=== PATIENT | female | born 1975 | race Caucasian/White ===

== ENCOUNTER 2017-03-05 14:20 | Emergency (ER) | payer SELFPAY ==
--- NOTE | 2017-03-05 15:03 | ER Document Report ---
ED Seizure - General Chief Complaint: Probable Seizure Stated Complaint: POSSIBLE SEIZURE Time Seen by Provider: 03/05/17 15:02 Mode of Arrival: Medic Information source: Patient, Friend, Emergency Med Personnel TRAVEL OUTSIDE OF THE [place] IN LAST 30 DAYS: No - HPI Patient complains to provider of: First seizure Quality of pain: No pain Severity: None Continued on arrival to ED: No Can details of seizure be obtained/verified: Yes Episode witnessed (by whom): Yes - SIGNIFICANT OTHER Preceding symptoms/context: Recent alcohol intake. denies: Recent illness/fever , Recent drug use, Sleep deprivation, Missed dose of meds, Changed meds or dosage, Somnolence History of: denies: Brain tumor or mets, CVA, Hydrocephalus, Migraines, TBI, V/ P shunt Character of seizure: Complete loss/conscious, Generalized shaking, Staring Post-ictal symptoms: Confusion. No: Headache Injuries: None Treatment COMPENSATION AND BENEFITS MANAGER: No: Advanced airway, Ativan, Valium Associated Symptoms: Confusion, Loss consciousness - Related Data Allergies/Adverse Reactions: No Known Allergies Allergy (Verified 03/05/17 14:57) Past Medical History - General Information source: Patient - Social History Smoking Status: Unknown if Ever Smoked Frequency of alcohol use: Occasional Drug Abuse: None Lives with: Spouse/Significant other Family History: None Patient has suicidal ideation: No Patient has homicidal ideation: No - Past Medical History Cardiac Medical History: Reports: None Pulmonary Medical History: Reports: None EENT Medical History: Reports: None Neurological Medical History: Reports: None Endocrine Medical History: Reports: None Renal/ Medical History: Reports: None Malignancy Medical History: Reports: None GI Medical History: Reports: None Musculoskeltal Medical History: Reports None Psychiatric Medical History: Reports: None Surgical Hx: Negative Review of Systems - Review of Systems Constitutional: Weakness EENT: No symptoms reported Cardiovascular: No symptoms reported Respiratory: No symptoms reported Gastrointestinal: No symptoms reported Genitourinary: No symptoms reported Female Genitourinary: denies: Musculoskeletal: No symptoms reported Neurological/Psychological: See HPI Physical Exam - Vital signs Vitals: Temp Pulse Resp BP Pulse Ox 98.9 F 81 16 135/79 H 99 03/05/17 14:31 03/05/17 14:31 03/05/17 14:31 03/05/17 14:31 03/05/17 14:31 Interpretation: Normal - General General appearance: Appears well, Alert In distress: None - HEENT Head: Normocephalic Eyes: Normal Conjunctiva: Normal Pupils: PERRL Ears: Normal Nasal: Normal Mouth/Lips: Normal Mucous membranes: Normal Neck: Normal, Supple - Respiratory Respiratory status: No respiratory distress Breath sounds: Normal - Cardiovascular Rhythm: Regular Heart sounds: Normal auscultation Murmur: No - Abdominal Inspection: Normal Distension: No distension Bowel sounds: Normal - Back Back: Normal - Extremities General upper extremity: Normal inspection General lower extremity: Normal inspection. No: Edema - Neurological Neuro grossly intact: Yes Cognition: Normal Orientation: AAOx4 - Psychological Associated symptoms: Normal affect, Normal mood - Skin Skin Temperature: Warm Skin Moisture: Dry Skin Color: Normal Skin Turgor: Elastic Course - Re-evaluation Re-evalutation: 03/05/17 18:24 PATIENT DENIES COMPLAINTS. RESULTS OF WORK-UP DISCUSSED. - Vital Signs Vital signs: Temp Pulse Resp BP Pulse Ox 98.9 F 81 16 135/79 H 99 03/05/17 14:31 03/05/17 14:31 03/05/17 14:31 03/05/17 14:31 03/05/17 14:31 - Laboratory Result Diagrams: 03/05/17 15:40 03/05/17 15:40 Laboratory results interpreted by me: 03/05/17 03/05/17 03/05/17 15:40 15:40 16:58 WBC 10.7 H RBC 3.66 L Hgb 11.6 L Hct 33.8 L RDW 15.3 H Seg Neuts % (Manual) 92 H Band Neutrophils % 2 L Lymphocytes % (Manual) 6 L Monocytes % (Manual) 0 L Abs Neuts (Manual) 10.1 H Abs Monocytes (Manual) 0.0 L Sodium 134.8 L BUN 6 L Creatine Kinase 168 H Urine Ketones TRACE H Ur Leukocyte Esterase SMALL H - Diagnostic Test Radiology reviewed: Image reviewed, Reports reviewed Discharge - Discharge Clinical Impression: Seizure Condition: Stable Disposition: HOME, SELF-CARE Instructions: New Seizure ([facility]) Additional Instructions: REST, DRINK PLENTY OF FLUIDS. AVOID ALL ALCOHOLIC DRINKS. AVOID ANY MEDICATIONS NOT PRESCRIBED FOR YOU. GET PLENTY OF SLEEP. FOLLOW UP WITH YOUR PRIMARY CARE PROVIDER OR RETURN TO E.R. IF PROBLEMS.
--- NOTE | 2017-03-05 15:39 | RADIOLOGY REPORT (SQ) ---
EXAM DESCRIPTION: CT HEAD WITHOUT COMPLETED DATE/TIME: 03/05/2017 3:32 pm REASON FOR STUDY: SEIZURE, NO PRIOR H/O SAME COMPARISON: None. TECHNIQUE: Axial images acquired through the brain without intravenous contrast. Images reviewed wi th bone, brain and subdural windows. Images stored on PACS. All CT scanners at this facility use dose modulation, iterative reconstruction, and/or weight based d osing when appropriate to reduce radiation dose to as low as reasonably achievable (ALARA). [facility]: Dose Right [facility]: CareDose [facility]: Dose Right [facility]: Teradose 4D [facility]: [employer] RADIATION DOSE: mGy. LIMITATIONS: None. FINDINGS: VENTRICLES: Normal size and contour. CEREBRUM: No masses. No hemorrhage. No midline shift. Normal arce/white matter differentiation. N o evidence for acute infarction. CEREBELLUM: No masses. No hemorrhage. No alteration of density. No evidence for acute infarction. EXTRAAXIAL SPACES: No fluid collections. No masses. ORBITS AND GLOBE: No intra- or extraconal masses. Normal contour of globe without masses. CALVARIUM: No fracture. PARANASAL SINUSES: No fluid or mucosal thickening. SOFT TISSUES: No mass or hematoma. OTHER: No other significant finding. IMPRESSION: NORMAL BRAIN CT WITHOUT CONTRAST. TECHNICAL DOCUMENTATION: JOB ID: [id number] Quality ID # [id number]: Final reports with documentation of one or more dose reduction techniques (e.g., Au tomated exposure control, adjustment of the mA and/or kV according to patient size, use of iterative reconstruction technique) 2010 [employer] All Rights Reserved
[2017-03-05 16:08] LABS: HEMATOCRIT 33.8 % (36.0-47.0); HEMOGLOBIN 11.6 g/dL (12.0-15.5); MEAN CORPUSCULAR HEMOGLOBIN 31.6 pg (27.0-33.4); MEAN CORPUSCULAR HGB CONC 34.2 g/dL (32.0-36.0); MEAN CORPUSCULAR VOLUME 93 fl (80-97); RED BLOOD COUNT 3.66 10^6/uL (3.72-5.28); RED CELL DISTRIBUTION WIDTH 15.3 % (11.5-14.0); WHITE BLOOD COUNT 10.7 10^3/uL (4.0-10.5)
[2017-03-05 16:20] LABS: ALANINE AMINOTRANSFERASE 21 U/L (9-52); ALBUMIN 3.9 g/dL (3.5-5.0); ALKALINE PHOSPHATASE 57 U/L (38-126); ANION GAP 8 (5-19); ASPARTATE AMINO TRANSFERASE 21 U/L (14-36); BILIRUBIN,DIRECT 0.2 mg/dL (0.0-0.4); BILIRUBIN,TOTAL 0.6 mg/dL (0.2-1.3); BLOOD UREA NITROGEN 6 mg/dL (7-20); CALCIUM 8.7 mg/dL (8.4-10.2); CARBON DIOXIDE 22 mmol/L (22-30); CHLORIDE 105 mmol/L (98-107); CREATINE KINASE 168 U/L (30-135); CREATININE RESULT 0.58 mg/dL (0.52-1.25); GLUCOSE 97 mg/dL (75-110); SODIUM 134.8 mmol/L (137-145); TOTAL PROTEIN 6.7 g/dL (6.3-8.2)
[2017-03-05 16:26] LABS: BAND NEUTROPHILS % (MANUAL) 2 % (3-5); BASOPHILS % (MANUAL) 0 % (0-2); EOSINOPHILS % (MANUAL) 0 % (0-6); LYMPHOCYTES % (MANUAL) 6 % (13-45); TOTAL CELLS COUNTED 100
[2017-03-05 16:27] LABS: ANISOCYTOSIS SLIGHT
[2017-03-05 17:23] LABS: APPEARANCE,URINE SLIGHTLY-CLOUDY; BILIRUBIN,URINE NEGATIVE (NEGATIVE); GLUCOSE, URINE NEGATIVE (NEGATIVE); KETONES,URINE TRACE mg/dL (NEGATIVE); LEUKOCYTE ESTERASE,URINE SMALL (NEGATIVE); NITRITE,URINE NEGATIVE (NEGATIVE); PROTEIN,URINE NEGATIVE (NEGATIVE); URINE SPECIFIC GRAVITY 1.016; UROBILINOGEN,URINE NEGATIVE mg/dL (<2.0)
[2017-03-05 17:36] LABS: URINE BARBITURATES SCREEN NEGATIVE; URINE METHADONE SCREEN NEGATIVE; URINE OPIATES LOW NEGATIVE; URINE PHENCYCLIDINE SCREEN NEGATIVE
[2017-03-05 19:28] VITALS: BP 109/59
== END 2017-03-05 19:36 | disposition home or self-care (01) ==
LOC: ER 14:20
DX: R56.9 Unspecified convulsions (principal)
CPT/HCPCS: 36415; 70450; 80053; 80307; 81001; 82550; 84703; 85025; 99285

== ENCOUNTER 2017-03-14 22:31 | Inpatient (IN) | payer BC ==
[2017-03-14] MEDS ORDERED: LORAZEPAM INJ 2 MG/1 ML VIAL ONE (23:25)
--- NOTE | 2017-03-14 23:27 | ER Document Report ---
ED General - General Stated Complaint: POSSIBLE SEIZURE Time Seen by Provider: 03/14/17 22:41 Notes: Please note history is limited as the patient is altered. This is a 42-year-old female with a history of opioid abuse on Suboxone, and history of seizures in the setting of drinking and withdrawal who presents with generalized tonic clonic seizure 2 at home once before EMS and 1 after EMS arrival. She was given Versed and ambulance resulting in termination of the seizures and depressed mental status. Her boyfriend said that she was here for the same recently and has been drinking up until 2 days ago. TRAVEL OUTSIDE OF THE [place] IN LAST 30 DAYS: No - Related Data Allergies/Adverse Reactions: No Known Allergies Allergy (Verified 03/05/17 14:57) Past Medical History - General Information source: Patient - Social History Smoking Status: Current Every Day Smoker Family History: None Review of Systems - Review of Systems Notes: REVIEW OF SYSTEMS Secondary to altered mental status PHYSICAL EXAMINATION General: No acute distress, well-nourished Head: Atraumatic, normocephalic ENT: Mouth normal, oropharynx moist, no exudates or tonsillar enlargement sided , contusion and small laceration with controlled bleeding. Eyes: Conjunctiva normal, pupils equal, lids normal Neck: No JVD, supple, no guarding CVS: Normal rate, regular rhythm, no murmurs Resp: No resp distress, equal and normal breath sounds bilaterally GI: Nondistended, soft, no tenderness to palpation, no rebound or guarding Ext: No deformities, no edema, normal range of motion in upper and lower ext Back: No CVA or midline TTP Skin: No rash, warm Lymphatic: No lymphadeopathy noted Neuro: Somnolent and snoring. Opens eyes and localizes pain to sternal rub.. Course - Re-evaluation Re-evalutation: 03/14/17 23:26 Patient presents with seizures generalized tonoclonic 2 in the setting of cessation of alcohol. Per boyfriend she also takes Suboxone and Wellbutrin but he has a low suspicion of overdose intentionally. She did not report any suicidal ideation. This is happened before when she try to stop drinking. She has been to rehab multiple times. There is no trauma and her glucose is normal. Will do a EKG and metabolic workup. She will be observed carefully. Approximately 1 11:20 PM is called to bedside as the patient was having another seizure. She could be having generalized tonic-clonic jerking movements, was unresponsive to verbal stimuli and had a desaturation event to 93. She was given 1 mg Ativan with cessation of the seizure. 03/15/17 00:59 Awake now and alert. She is no nystagmus. She is able to recount the prior day 's events. She states that she did stop alcohol and has been in rehab twice both in [place] and [place]. Spoke with her, her partner, and her father about options of treatment. Given her ability and access to inpatient supervised detox I do not think she merits a Librium taper however she and her partner seem motivated to seek i patient rehab so we will give him referrals and contact him with social work. Patient is clinically sober, her workup has been negative thus far and given her normal mental status and lack of signs of withdrawal (no tongue fasciculations and no tremor) she is stable for discharge home. I have discussed with the patient there likely diagnosis, aftercare plan, follow -up plans and my usual and customary return precautions. They verbalized understanding of this. - Laboratory Result Diagrams: 03/15/17 00:02 03/14/17 22:39 Laboratory results interpreted by me: 03/14/17 03/15/17 22:39 00:02 RDW 15.9 H Seg Neutrophils % 89.1 H Lymphocytes % 7.4 L Carbon Dioxide 13 L Anion Gap 24 H Glucose 141 H Critical Care Note - Critical Care Note Total time excluding time spent on procedures (mins): 32 Comments: The above patient is critically ill. Not including procedures, but including direct re-evaluations, speaking with patient and/or consultants, interpreting results, and documenting, I spent the total amount of minute listed listed above on critical care time Discharge - Discharge Clinical Impression: Alcohol withdrawal seizure Qualifiers: Complication of substance-induced condition: with delirium Qualified Code(s): F10.231 - Alcohol dependence with withdrawal delirium Condition: Good Disposition: HOME, SELF-CARE Instructions: Alcohol Withdrawl ([facility]) Referrals: [facility] [Provider Group] - Follow up in 3-5 days [facility] [Provider Group] - Follow up in 3-5 days
--- NOTE | 2017-03-14 23:30 | RADIOLOGY REPORT (SQ) ---
EXAM DESCRIPTION: CT HEAD WITHOUT COMPLETED DATE/TIME: 03/14/2017 11:10 pm REASON FOR STUDY: sz, r/o bleed COMPARISON: 03/05/2017 TECHNIQUE: Axial images acquired through the brain without intravenous contrast. Images reviewed wi th bone, brain and subdural windows. Images stored on PACS. All CT scanners at this facility use dose modulation, iterative reconstruction, and/or weight based d osing when appropriate to reduce radiation dose to as low as reasonably achievable (ALARA). [facility]: Dose Right [facility]: CareDose [facility]: Dose Right [facility]: Teradose 4D [facility]: [employer] RADIATION DOSE: Up-to-date CT equipment and radiation dose reduction techniques were employed. CTDIv ol: 49.0 mGy. DLP: 979 mGy-cm. mGy. LIMITATIONS: None. FINDINGS: VENTRICLES: Normal size and contour. CEREBRUM: No masses. No hemorrhage. No midline shift. Normal arce/white matter differentiation. N o evidence for acute infarction. CEREBELLUM: No masses. No hemorrhage. No alteration of density. No evidence for acute infarction. EXTRAAXIAL SPACES: No fluid collections. No masses. ORBITS AND GLOBE: No intra- or extraconal masses. Normal contour of globe without masses. CALVARIUM: No fracture. PARANASAL SINUSES: No fluid or mucosal thickening. SOFT TISSUES: No mass or hematoma. OTHER: No other significant finding. IMPRESSION: NORMAL BRAIN CT WITHOUT CONTRAST. TECHNICAL DOCUMENTATION: JOB ID: [id number] Quality ID # [id number]: Final reports with documentation of one or more dose reduction techniques (e.g., Au tomated exposure control, adjustment of the mA and/or kV according to patient size, use of iterative reconstruction technique) 2010 [employer]- All Rights Reserved
[2017-03-15 00:01] LABS: BLOOD UREA NITROGEN 7 mg/dL (7-20); CALCIUM 9.1 mg/dL (8.4-10.2); CARBON DIOXIDE 13 mmol/L (22-30); CHLORIDE 105 mmol/L (98-107); CREATININE RESULT 0.76 mg/dL (0.52-1.25); GLUCOSE 141 mg/dL (75-110); SODIUM 141.7 mmol/L (137-145)
[2017-03-15 00:02] LABS: POTASSIUM 3.9 mmol/L (3.6-5.0)
[2017-03-15 00:08] LABS: ABSOLUTE LYMPHOCYTES (AUTO) 0.6 10^3/uL (0.5-4.7); ABSOLUTE MONOCYTES (AUTO) 0.3 10^3/uL (0.1-1.4); ABSOLUTE NEUT (AUTO) 7.5 10^3/uL (1.7-8.2); BASOPHILS % (AUTO) 0.3 % (0-2); EOSINOPHILS % (AUTO) 0.1 % (0-6); HEMATOCRIT 37.8 % (36.0-47.0); HGB HCT DIFFERENCE 1.2; LYMPHOCYTES % (AUTO) 7.4 % (13-45); MEAN CORPUSCULAR HEMOGLOBIN 32.2 pg (27.0-33.4); MEAN CORPUSCULAR HGB CONC 34.5 g/dL (32.0-36.0); MEAN CORPUSCULAR VOLUME 93 fl (80-97); MONOCYTES % (AUTO) 3.1 % (3-13); RED BLOOD COUNT 4.06 10^6/uL (3.72-5.28); RED CELL DISTRIBUTION WIDTH 15.9 % (11.5-14.0); SEGMENTED NEUTROPHILS % (AUTO) 89.1 % (42-78); WHITE BLOOD COUNT 8.4 10^3/uL (4.0-10.5)
[2017-03-15 00:14] LABS: ANION GAP 24 (5-19)
[2017-03-15] MEDS ORDERED: LORAZEPAM INJ 2 MG/1 ML VIAL IV ONE ×2 (01:42→07:00)
[2017-03-15 03:44] LABS: ALANINE AMINOTRANSFERASE 21 U/L (9-52); ALBUMIN 4.5 g/dL (3.5-5.0); ALKALINE PHOSPHATASE 59 U/L (38-126); ASPARTATE AMINO TRANSFERASE 20 U/L (14-36); BILIRUBIN,DIRECT 0.3 mg/dL (0.0-0.4); BILIRUBIN,TOTAL 0.3 mg/dL (0.2-1.3); TOTAL PROTEIN 7.6 g/dL (6.3-8.2)
[2017-03-15] MEDS ORDERED: ONDANSETRON HCL INJ/PF 4 MG/2 ML SDV IV PRN (04:46)
[2017-03-15] MEDS ORDERED: ACETAMINOPHEN 325 MG TABLET PO PRN (04:46)
[2017-03-15] MEDS ORDERED: IPRATROPIUM/ALBUTEROL 0.5-2.5 MG/3 ML AMPUL NEB PRN (04:46)
[2017-03-15] MEDS ORDERED: NORMAL SALINE 1000 ML 1,000 ML IV SCH (05:00)
[2017-03-15 05:07] LABS: ALANINE AMINOTRANSFERASE 16 U/L (9-52); ALBUMIN 4.4 g/dL (3.5-5.0); ALKALINE PHOSPHATASE 63 U/L (38-126); ANION GAP 14 (5-19); ASPARTATE AMINO TRANSFERASE 18 U/L (14-36); BILIRUBIN,DIRECT 0.2 mg/dL (0.0-0.4); BILIRUBIN,TOTAL 0.2 mg/dL (0.2-1.3); BLOOD UREA NITROGEN 9 mg/dL (7-20); CALCIUM 9.2 mg/dL (8.4-10.2); CARBON DIOXIDE 20 mmol/L (22-30); CHLORIDE 106 mmol/L (98-107); CREATININE RESULT 0.75 mg/dL (0.52-1.25); GLUCOSE 153 mg/dL (75-110); MAGNESIUM 2.2 mg/dL (1.6-2.3); PHOSPHORUS 3.3 mg/dL (2.5-4.5); POTASSIUM 4.3 mmol/L (3.6-5.0); SODIUM 139.8 mmol/L (137-145); TOTAL PROTEIN 7.6 g/dL (6.3-8.2)
[2017-03-15] MEDS ORDERED: LORAZEPAM INJ 2 MG/1 ML VIAL ONE (05:57)
[2017-03-15] MEDS: HEPARIN SOD (PORCINE) 5,000 UNIT/ML 1 ML SYRINGE SUBCUT SCH ×3 (06:08→21:35)
[2017-03-15] MEDS ORDERED: LORAZEPAM INJ 2 MG/1 ML VIAL IV PRN (10:25)
[2017-03-15] MEDS: DOCUSATE SODIUM 100 MG CAPSULE PO SCH ×2 (10:58→18:13)
[2017-03-15] MEDS ORDERED: LORAZEPAM 24 MG/240 ML BAG IV PRN (13:17)
[2017-03-15 14:33] LABS: URINE BARBITURATES SCREEN NEGATIVE; URINE METHADONE SCREEN NEGATIVE; URINE OPIATES LOW NEGATIVE; URINE PHENCYCLIDINE SCREEN NEGATIVE
[2017-03-15] MEDS: LORAZEPAM INJ 2 MG/1 ML VIAL IV SCH ×3 (14:40→21:35)
--- NOTE | 2017-03-15 17:03 | PDOC H&P ---
History of Present Illness Admission Date/PCP: 03/15/17 04:46 History of Present Illness: RYLAND SHARMA is a 42 year old female,Patient was brought to the emergency room today for evaluation of altered mental status, in the emergency room she had a witnessed seizure. Patient have a long history of alcohol abuse, she is new to our practice, she was seen last month for the first time to establish with us, she stated that she just moved from [place] to [facility]. I spoke to patient's partner/boyfriend,he stated that patient is fond of binge drinking that she will go without alcohol for a long while and then she will go on binge drinking the alcohol of choice is hard liquor versus rubbing alcohol. The alcohol level was low, so it seemed that she is having alcohol withdrawal syndrome.Very minimal history could be obtained from this patient, most of the history is from the boyfriend Past Medical History Psychiatric Medical History: Reports: Alcohol Dependency, Depression Social History Smoking Status: Current Every Day Smoker Cigarettes Packs Per Day: 0.5 Number of Years Smokin Frequency of Alcohol Use: Heavy Hx Recreational Drug Use: No Hx Prescription Drug Abuse: Yes - Advance Directive Resuscitation Status: Full Code Family History Family History: None Parental Family History Reviewed: Yes Children Family History Reviewed: Yes Sibling(s) Family History Reviewed.: Yes Medication/Allergy Home Medications: Buprenorphine HCl/Naloxone HCl [Suboxone 8 mg-2 mg Sl Film] 1 each SL Q8 Bupropion HCl [Wellbutrin Sr 150 mg Tablet] 1 tab PO Q12 03/15/17 Buspirone HCl [Buspar 30 mg Tablet] 1 tab PO DAILY 03/15/17 Gabapentin [Neurontin] 600 mg PO Q6 03/15/17 Mirtazapine 30 mg PO QHS 03/15/17 Pregabalin [Lyrica 50 Mg Capsule] 50 mg PO Q12 03/15/17 Topiramate [Topamax] 50 mg PO Q12 03/15/17 Allergies/Adverse Reactions: No Known Allergies Allergy (Verified 03/15/17 09:12) Review of Systems ROS unobtainable: Due to mental status Physical Exam Vital Signs: Temp Pulse Resp BP Pulse Ox 99.5 F 94 16 134/79 H 100 03/15/17 15:20 03/15/17 15:20 03/15/17 15:20 03/15/17 15:20 03/15/17 15:20 Intake & Output 03/14/17 03/15/17 03/16/17 06:59 06:59 06:59 Weight 67.2 kg 68.5 kg General appearance: PRESENT: other - Stuporous Head exam: PRESENT: atraumatic, normocephalic Eye exam: PRESENT: PERRLA. ABSENT: scleral icterus Ear exam: PRESENT: normal external ear exam Mouth exam: PRESENT: moist, tongue midline Neck exam: PRESENT: full ROM Respiratory exam: PRESENT: clear to auscultation gage Cardiovascular exam: PRESENT: RRR, +S1, +S2 GI/Abdominal exam: PRESENT: normal bowel sounds, soft Rectal exam: PRESENT: deferred Neurological exam: PRESENT: altered Results Laboratory Results: 03/15/17 15:52 Lactic Acid 1.4 Impressions: Head CT 03/14/17 22:41 IMPRESSION: NORMAL BRAIN CT WITHOUT CONTRAST. Assessment & Plan - Diagnosis (1) Alcohol withdrawal seizure Qualifiers: Complication of substance-induced condition: with delirium Qualified Code(s): F10.231 - Alcohol dependence with withdrawal delirium Is this a current diagnosis for this admission?: YesPlan: Patient is admitted for management she will be treated with intravenous lorazepam, for 24 hours then we reevaluate.
[2017-03-16] MEDS: LORAZEPAM INJ 2 MG/1 ML VIAL IV SCH ×3 (01:19→10:14)
[2017-03-16] MEDS: HEPARIN SOD (PORCINE) 5,000 UNIT/ML 1 ML SYRINGE SUBCUT SCH ×3 (05:02→21:10)
[2017-03-16 06:04] LABS: ABSOLUTE LYMPHOCYTES (AUTO) 1.6 10^3/uL (0.5-4.7); ABSOLUTE MONOCYTES (AUTO) 0.5 10^3/uL (0.1-1.4); ABSOLUTE NEUT (AUTO) 7.7 10^3/uL (1.7-8.2); BASOPHILS % (AUTO) 0.4 % (0-2); EOSINOPHILS % (AUTO) 0.2 % (0-6); HEMATOCRIT 32.8 % (36.0-47.0); HEMOGLOBIN 11.3 g/dL (12.0-15.5); HGB HCT DIFFERENCE 1.1; LYMPHOCYTES % (AUTO) 16.1 % (13-45); MEAN CORPUSCULAR HEMOGLOBIN 32.2 pg (27.0-33.4); MEAN CORPUSCULAR HGB CONC 34.4 g/dL (32.0-36.0); MEAN CORPUSCULAR VOLUME 94 fl (80-97); MONOCYTES % (AUTO) 4.8 % (3-13); RED BLOOD COUNT 3.51 10^6/uL (3.72-5.28); RED CELL DISTRIBUTION WIDTH 15.8 % (11.5-14.0); SEGMENTED NEUTROPHILS % (AUTO) 78.5 % (42-78); WHITE BLOOD COUNT 9.8 10^3/uL (4.0-10.5)
[2017-03-16 06:28] LABS: ALANINE AMINOTRANSFERASE 19 U/L (9-52); ALBUMIN 3.9 g/dL (3.5-5.0); ALKALINE PHOSPHATASE 59 U/L (38-126); ANION GAP 10 (5-19); ASPARTATE AMINO TRANSFERASE 15 U/L (14-36); BILIRUBIN,DIRECT 0.3 mg/dL (0.0-0.4); BILIRUBIN,TOTAL 0.6 mg/dL (0.2-1.3); BLOOD UREA NITROGEN 8 mg/dL (7-20); CARBON DIOXIDE 23 mmol/L (22-30); CHLORIDE 102 mmol/L (98-107); CREATININE RESULT 0.63 mg/dL (0.52-1.25); GLUCOSE 108 mg/dL (75-110); SODIUM 134.8 mmol/L (137-145); TOTAL PROTEIN 6.5 g/dL (6.3-8.2)
[2017-03-16] MEDS: DOCUSATE SODIUM 100 MG CAPSULE PO SCH ×2 (10:14→18:34)
[2017-03-16] MEDS ORDERED: ONDANSETRON HCL INJ/PF 4 MG/2 ML SDV IV PRN (12:57)
[2017-03-16] MEDS ORDERED: LORAZEPAM INJ 2 MG/1 ML VIAL IV PRN (14:00)
--- NOTE | 2017-03-16 16:43 | PSYCHOLOGICAL NOTE ---
Psych Note - Psych Note Psych Note: This is a 42-year-old female with a history of opioid abuse on Suboxone, and history of seizures in the setting of drinking and withdrawal who presents with generalized tonic clonic seizure 2 at home once before EMS and 1 after EMS arrival. Psychiatric evaluation was requested for concern of alcohol abuse. Patient stated she would like information on both in patient and out patient substance abuse treatment for alcohol. Patient denies wanted to harm herself or killing herself. Patient stated she does have a drinking problem and has seizures from withdrawal. Patient disclosed her family is also helping her plan her treatment. Patient is alert and orientated to person, place, time and circumstance. Mood is lethargic with flat affect; patient is currently receiving Ativan for treatment of alcohol withdrawal. Patient denies suicidal and homicidal ideation. Delusions were absent and behaviour is congruent with an intact reality based presentation (i.e. organized, linear,rational thinking). Eye contact was well maintained. Attention and concentration was fair. Insight, judgement and impulse control appears to be fair. 303.90 (F10.20) Alcohol Abuse; severe Impression/plan: Patient is considered psychiatrically cleared. Patient does not meet IVC criteria per [place] GS 122C. Patient denies suicidal and homicidal ideation. Delusions were absent and behaviour is congruent with an intact reality based presentation (i.e. organized, linear,rational thinking). Patient is recommended to receive substance abuse treatment; resources were provided. Dr. Lara was consulted on the care and management of this patient.
--- NOTE | 2017-03-16 20:49 | PDOC PROGRESS REPORT ---
Subjective Progress Note for:: 03/16/17 Subjective:: Patient was seen by the bedside she is more alert, awake and responsive today, she was seen by the psychiatrist as well today. She was n.p.o. since admission , she can eat regular diet, hopefully discharge home tomorrow Physical Exam Vital Signs: Temp Pulse Resp BP Pulse Ox 98.7 F 84 16 124/68 100 03/16/17 19:31 03/16/17 20:04 03/16/17 19:31 03/16/17 19:31 03/16/17 19:31 Intake & Output 03/15/17 03/16/17 03/17/17 06:59 06:59 06:59 Intake Total 2561 700 Output Total 750 Balance 1811 700 Weight 67.2 kg 70.9 kg General appearance: PRESENT: no acute distress, well-developed, well-nourished Head exam: PRESENT: atraumatic, normocephalic Eye exam: PRESENT: conjunctiva pink, EOMI, PERRLA Ear exam: PRESENT: normal external ear exam Mouth exam: PRESENT: moist, tongue midline Neck exam: PRESENT: full ROM Respiratory exam: PRESENT: clear to auscultation gage Cardiovascular exam: PRESENT: RRR, +S1, +S2 Pulses: PRESENT: normal dorsalis pedis pul, +2 pedal pulses bilateral Vascular exam: PRESENT: normal capillary refill GI/Abdominal exam: PRESENT: normal bowel sounds, soft Rectal exam: PRESENT: deferred Neurological exam: PRESENT: alert, CN II-XII grossly intact Psychiatric exam: PRESENT: appropriate affect, normal mood Skin exam: PRESENT: dry, intact, warm Results Laboratory Results: 03/16/17 05:25 03/16/17 05:25 03/16/17 03/16/17 05:25 05:25 WBC 9.8 RBC 3.51 L Hgb 11.3 L Hct 32.8 L MCV 94 MCH 32.2 MCHC 34.4 RDW 15.8 H Plt Count 221 Seg Neutrophils % 78.5 H Lymphocytes % 16.1 Monocytes % 4.8 Eosinophils % 0.2 Basophils % 0.4 Absolute Neutrophils 7.7 Absolute Lymphocytes 1.6 Absolute Monocytes 0.5 Absolute Eosinophils 0.0 Absolute Basophils 0.0 Sodium 134.8 L Potassium 4.0 Chloride 102 Carbon Dioxide 23 Anion Gap 10 BUN 8 Creatinine 0.63 Est GFR ( Amer) > 60 Est GFR (Non-Af Amer) > 60 Glucose 108 Calcium 9.0 Total Bilirubin 0.6 AST 15 ALT 19 Alkaline Phosphatase 59 Total Protein 6.5 Albumin 3.9 Impressions: Head CT 03/14/17 22:41 IMPRESSION: NORMAL BRAIN CT WITHOUT CONTRAST. Assessment & Plan - Diagnosis (1) Alcohol withdrawal seizure Qualifiers: Complication of substance-induced condition: with delirium Qualified Code(s): F10.231 - Alcohol dependence with withdrawal delirium Is this a current diagnosis for this admission?: Yes
[2017-03-17] MEDS: HEPARIN SOD (PORCINE) 5,000 UNIT/ML 1 ML SYRINGE SUBCUT SCH ×2 (05:20→13:35)
[2017-03-17] MEDS: DOCUSATE SODIUM 100 MG CAPSULE PO SCH (09:20)
[2017-03-17 17:51] VITALS: BP 129/57
--- NOTE | 2017-03-17 22:06 | PDOC DISCHARGE SUMMARY ---
General - Admit/Disc Date/PCP Admission Date/Primary Care Provider: 03/15/17 04:46 Discharge Date: 03/17/17 - Discharge Diagnosis (1) Alcohol withdrawal seizure Is this a current diagnosis for this admission?: Yes - Additional Information Resuscitation Status: Full Code Discharge Diet: Regular Discharge Activity: Activity As Tolerated Home Medications: Buprenorphine HCl/Naloxone HCl [Suboxone 8 mg-2 mg Sl Film] 1 each SL Q8 Bupropion HCl [Wellbutrin Sr 150 mg Tablet] 1 tab PO Q12 03/15/17 Buspirone HCl [Buspar 30 mg Tablet] 1 tab PO DAILY 03/15/17 Mirtazapine 30 mg PO QHS 03/15/17 Pregabalin [Lyrica 50 mg Capsule] 50 mg PO Q12 03/15/17 Topiramate [Topamax] 50 mg PO Q12 03/15/17 History of Present Illness History of Present Illness: RYLAND SHARMA is a 42 year old female,Patient was brought to the emergency room today for evaluation of altered mental status, in the emergency room she had a witnessed seizure. Patient have a long history of alcohol abuse, she is new to our practice, she was seen last month for the first time to establish with us, she stated that she just moved from [place] to [facility]. I spoke to patient's partner/boyfriend,he stated that patient is fond of binge drinking that she will go without alcohol for a long while and then she will go on binge drinking the alcohol of choice is hard liquor versus rubbing alcohol. The alcohol level was low, so it seemed that she is having alcohol withdrawal syndrome.Very minimal history could be obtained from this patient, most of the history is from the [facility] Hospital Course Hospital Course: Patient was admitted for the management of alcohol related seizure, she was treated with lorazepam intravenously, was kept n.p.o. for 24 hours. She was then transitioned to as needed lorazepam, she is stable enough today she is awake and responsive she will be discharged home. Physical Exam Vital Signs: Temp Pulse Resp BP Pulse Ox 98.4 F 64 16 129/57 H 100 03/17/17 17:50 03/17/17 17:50 03/17/17 17:50 03/17/17 17:50 03/17/17 17:50 Intake & Output 03/16/17 03/17/17 03/18/17 06:59 06:59 06:59 Intake Total 2561 1806 1300 Output Total 750 0 Balance 1811 1806 1300 Weight 70.9 kg 70.9 kg General appearance: PRESENT: no acute distress, well-developed, well-nourished Head exam: PRESENT: atraumatic, normocephalic Eye exam: PRESENT: conjunctiva pink, EOMI, PERRLA Ear exam: PRESENT: normal external ear exam Mouth exam: PRESENT: moist, tongue midline Neck exam: PRESENT: full ROM Cardiovascular exam: PRESENT: RRR, +S1, +S2 Pulses: PRESENT: normal dorsalis pedis pul, +2 pedal pulses bilateral Vascular exam: PRESENT: normal capillary refill GI/Abdominal exam: PRESENT: normal bowel sounds, soft Rectal exam: PRESENT: deferred Neurological exam: PRESENT: alert, awake, oriented to person, oriented to place , oriented to time, oriented to situation, CN II-XII grossly intact Psychiatric exam: PRESENT: appropriate affect, normal mood Skin exam: PRESENT: dry, intact, warm Results Laboratory Results: 03/16/17 05:25 03/16/17 05:25 Impressions: Head CT 03/14/17 22:41 IMPRESSION: NORMAL BRAIN CT WITHOUT CONTRAST.
== END 2017-03-17 18:07 | disposition home or self-care (01) | DRG 897 ==
LOC: ER 22:31 → UNDOADMIN 03-15 03:36 → EH 03-15 03:36 → 3S 03-15 09:21
PROVIDERS: ADMIT Internal Medicine; ATTEND Internal Medicine
DX: F10.231 Alcohol dependence with withdrawal delirium (principal); G40.89 Other seizures; Z79.899 Other long term (current) drug therapy
CPT/HCPCS: 36415; 70450; 80048; 80053; 80076; 80307; 83605; 83735; 83930; 84100; 85025; 96374; 96376; 99291; J1644; J2060; J2405

== ENCOUNTER 2018-06-09 03:31 | Inpatient (IN) | payer BC ==
[2018-06-09] MEDS ORDERED: RINGERS SOLUTION,LACTATED 1,000 ML IV ONE (03:42)
[2018-06-09] MEDS ORDERED: THIAMINE HCL 100 MG, FOLIC ACID 1 MG in NORMAL SALINE 250 ML IV SCH (03:45)
[2018-06-09 03:48] LABS: ABSOLUTE LYMPHOCYTES (AUTO) 0.6 10^3/uL (0.5-4.7); ABSOLUTE MONOCYTES (AUTO) 0.2 10^3/uL (0.1-1.4); ABSOLUTE NEUT (AUTO) 6.6 10^3/uL (1.7-8.2); BASOPHILS % (AUTO) 0.5 % (0-2); EOSINOPHILS % (AUTO) 0.1 % (0-6); HEMATOCRIT 35.1 % (36.0-47.0); HEMOGLOBIN 12.1 g/dL (12.0-15.5); MEAN CORPUSCULAR HEMOGLOBIN 31.3 pg (27.0-33.4); MEAN CORPUSCULAR HGB CONC 34.4 g/dL (32.0-36.0); MEAN CORPUSCULAR VOLUME 91 fl (80-97); PLATELET COUNT 230 10^3/uL (150-450); RED BLOOD COUNT 3.86 10^6/uL (3.72-5.28); RED CELL DISTRIBUTION WIDTH 15.2 % (11.5-14.0); SEGMENTED NEUTROPHILS % (AUTO) 88.4 % (42-78); TOTAL CELLS COUNTED % (AUTO) 100 %; WHITE BLOOD COUNT 7.5 10^3/uL (4.0-10.5)
[2018-06-09] MEDS ORDERED: THIAMINE HCL INJ 200 MG/2 ML VIAL ONE (03:57)
[2018-06-09 03:59] LABS: ALANINE AMINOTRANSFERASE 12 U/L (9-52); ALBUMIN 3.6 g/dL (3.5-5.0); ALKALINE PHOSPHATASE 51 U/L (38-126); ANION GAP 13 (5-19); ASPARTATE AMINO TRANSFERASE 19 U/L (14-36); BILIRUBIN,DIRECT 0.1 mg/dL (0.0-0.4); BILIRUBIN,TOTAL 0.2 mg/dL (0.2-1.3); BLOOD UREA NITROGEN 6 mg/dL (7-20); CALCIUM 8.7 mg/dL (8.4-10.2); CARBON DIOXIDE 21 mmol/L (22-30); CHLORIDE 110 mmol/L (98-107); GLUCOSE 117 mg/dL (75-110); POTASSIUM 3.8 mmol/L (3.6-5.0); SODIUM 144.4 mmol/L (137-145); TOTAL PROTEIN 6.3 g/dL (6.3-8.2)
[2018-06-09 04:02] LABS: ACETAMINOPHEN < 10 ug/mL (10-30); ALCOHOL < 10 mg/dL (NONE DETECTED); SALICYLATE < 1.0 mg/dL (2.0-20.0)
[2018-06-09] MEDS ORDERED: LORAZEPAM INJ 2 MG/1 ML VIAL ONE ×2 (04:26→10:02)
--- NOTE | 2018-06-09 04:26 | RADIOLOGY REPORT (SQ) ---
CT head without contrast on 06/09/2018 at 3:56 AM CLINICAL INDICATION: Seizure TECHNIQUE: Multiple axial images are obtained throughout the head without the administration of contrast. This exam was performed according to our departmental dose-optimization program, which includes automated exposure control, adjustment of the mA and/or kV according to patient size and/or use of iterative reconstruction technique. Total DLP is 1096.98 mGy*cm. COMPARISON: None currently available FINDINGS: There is no hydrocephalus. There is no CT evidence of acute infarct. There is no hemorrhage. There are no abnormal extra-axial fluid collections. There is no mass, mass effect or midline shift. No bony abnormality is noted. IMPRESSION: No acute intracranial abnormality.
[2018-06-09] MEDS ORDERED: LEVETIRACETAM 1000 MG/NACL-ISO 1,000 MG/100 ML RTUPB IV ONE ×2 (04:27→04:29)
[2018-06-09] MEDS ORDERED: LORAZEPAM INJ 2 MG/1 ML VIAL IV ONE ×3 (04:28→22:15)
--- NOTE | 2018-06-09 04:30 | ER Document Report ---
ED General - General Stated Complaint: POSSIBLE SEIZURE Time Seen by Provider: 06/09/18 03:37 Notes: Patient is a 43-year-old female presents with complaint of seizure. Patient's had 3 seizures today. One was witnessed by the paramedics. They gave her 10 of Versed IM as well as 50 Benadryl and 5 of Haldol as patient was combative after the seizure. No recent fevers or infections. Patient is able to communicate with me well at this time. She says that the only previous history of seizures was due to alcohol withdrawal. She does admit to recent binge drinking which she stopped 2 days ago. She thinks these are probably related to alcohol withdrawal as well. She supposed to take Keppra for seizures but says that she has not taken out a long time. Looked up her previous admission for the same thing where she was seen by Dr. Delarosa in the past but patient says she only saw him one time is not seen him in over a year and does not have a current primary care doctor. She denies any recent fevers or infections. She denies any trauma or injuries. TRAVEL OUTSIDE OF THE [place] IN LAST 30 DAYS: No - Related Data Allergies/Adverse Reactions: No Known Allergies Allergy (Verified 03/15/17 09:12) Past Medical History - Social History Smoking Status: Unknown if Ever Smoked Frequency of alcohol use: Heavy Drug Abuse: None Family History: None Psychiatric Medical History: Reports: Hx Depression Review of Systems - Review of Systems Notes: My Normal Review Basic REVIEW OF SYSTEMS: CONSTITUTIONAL : Denies fever, chills, or sweats. Denies recent illness. EENT: Denies eye, ear, throat, or mouth pain or symptoms. Denies nasal or sinus congestion. CARDIOVASCULAR: Denies chest pain. RESPIRATORY: Denies cough, cold, or chest congestion. Denies shortness of breath, difficulty breathing, or wheezing. GASTROINTESTINAL: Denies abdominal pain. Denies nausea, vomiting, or diarrhea. MUSCULOSKELETAL: Denies neck or back pain or joint pain or swelling. SKIN: Denies rash or skin lesions. NEUROLOGICAL: Seizure followed by altered mental status. ALL OTHER SYSTEMS REVIEWED AND NEGATIVE. Physical Exam - Notes Notes: General Appearance: Well nourished, lately somnolent, cooperative, no acute distress, no obvious discomfort. Well-appearing. Vitals: reviewed, See vital signs table. Head: no swelling or tenderness to the head Eyes: PERRL, EOMI, Conjuctiva clear Mouth: No decreasd moisture Lungs: No wheezing, No rales, No rhonci, No accessory muscle use, good air exchange bilaterally. Heart: Normal rate, Regular rythm, No murmur, no rub Abdomen: Normal BS, soft, No rigidity, No abdominal tenderness, No guarding, no rebound, no abdominal masses, no organomegaly Extremities: strength 5/5 in all extremities, good pulses in all extremities, no swelling or tenderness in the extremities, no edema. Skin: warm, dry, appropriate color, no rash Neuro: speech clear, oriented x 2, lightly somnolent affect, responds appropriately to questions. Cranial nerves II through XII are intact. Patient able to move all 4 extremities without difficulty. Distal sensation intact. Course - Re-evaluation Re-evalutation: 06/09/18 04:29 Patient has had another seizure. Last approximately 30 seconds. With full body tonic-clonic seizure. Patient is given 2 mg of Ativan as she still having some intermittent clenching of her face. This has resolved with the Ativan. We will give her Keppra as she has been on Keppra in the past and has not been taking it per her own history. 06/09/18 05:26 Patient has not had any further seizures since receiving the Keppra. Heart rate is currently right around 100. Patient is always somewhat as expected. She had a seizure followed by Ativan and now is receiving Keppra. She still able to wake up and answer my questions. Informed I feel that it is best if we admit her to the hospital for further observation and to make sure he does not have any further seizures. Per her own history it sounds as if her seizures occur with alcohol withdrawal. There is also some noncompliance with the Keppra. Patient is agreeable to this. I did speak with Dr. Andrews who agrees to evaluate the patient for admission. Dictation of this chart was performed using voice recognition software; therefore, there may be some unintended grammatical errors. - Laboratory Result Diagrams: 06/09/18 03:35 06/09/18 03:35 Laboratory results interpreted by me: 06/09/18 06/09/18 03:35 03:35 Hct 35.1 L RDW 15.2 H Seg Neutrophils % 88.4 H Lymphocytes % 8.0 L Chloride 110 H Carbon Dioxide 21 L BUN 6 L Glucose 117 H Salicylates < 1.0 L Acetaminophen < 10 L Discharge - Discharge Referrals: SAURABH STACY MD [Primary Care Provider] - Follow up as needed
[2018-06-09] MEDS ORDERED: ACETAMINOPHEN 325 MG TABLET PO PRN (05:30)
[2018-06-09] MEDS ORDERED: LORAZEPAM INJ 2 MG/1 ML VIAL IV PRN (05:30)
[2018-06-09] MEDS ORDERED: IPRATROPIUM/ALBUTEROL 0.5-2.5 MG/3 ML AMPUL NEB PRN (05:30)
--- NOTE | 2018-06-09 06:44 | PDOC H&P ---
History of Present Illness Admission Date/PCP: SAURABH STACY Patient complains of: Seizure History of Present Illness: BAYLEE SHARMA is a 43 year old female with a past medical history of alcohol binging, alcohol withdrawal seizure and depression. History is obtained by the record as she is sedated. Patient presents after 3 seizures following abrupt alcohol cessation, last drink 48 hours ago. EMS witnessed a seizure for which she received Versed, she was combative in postictal state prompting Haldol and Benadryl. She denies fever, headache, recent illness. She admits to remote discontinuation of Keppra. In the emergency room she has another witnessed seizure with urinary incontinence and tongue biting, prompting 2 mg of Ativan and subsequently aborted within 1 minute. Past Medical History Psychiatric Medical History: Reports: Alcohol Dependency, Depression Social History Information Source: Patient, Emergency Med Personnel, [facility] Records Smoking Status: Unknown if Ever Smoked Frequency of Alcohol Use: Heavy Hx Recreational Drug Use: No Hx Prescription Drug Abuse: Yes - Advance Directive Resuscitation Status: Full Code Family History Family History: Other - Unobtainable Parental Family History Reviewed: No - Unobtainable Children Family History Reviewed: No Sibling(s) Family History Reviewed.: No Medication/Allergy Home Medications: Buprenorphine HCl/Naloxone HCl [Suboxone 8 mg-2 mg Sl Film] 1 each SL Q8 Bupropion HCl [Wellbutrin Sr 150 mg Tablet] 1 tab PO Q12 03/15/17 Buspirone HCl [Buspar 30 mg Tablet] 1 tab PO DAILY 03/15/17 Mirtazapine 30 mg PO QHS 03/15/17 Pregabalin [Lyrica 50 mg Capsule] 50 mg PO Q12 03/15/17 Topiramate [Topamax] 50 mg PO Q12 03/15/17 Allergies/Adverse Reactions: No Known Allergies Allergy (Verified 03/15/17 09:12) Review of Systems ROS unobtainable: Due to mental status Physical Exam Vital Signs: Temp Pulse Resp BP Pulse Ox 16 118/69 99 06/09/18 06:01 06/09/18 06:01 06/09/18 05:01 Intake & Output 06/07/18 06/08/18 06/09/18 11:59 11:59 11:59 Intake Total 100 Balance 100 General appearance: PRESENT: disheveled, mild distress. ABSENT: no acute distress, cooperative Head exam: PRESENT: atraumatic, normocephalic Eye exam: PRESENT: conjunctiva pink, EOMI, PERRLA. ABSENT: scleral icterus Ear exam: PRESENT: normal external ear exam Mouth exam: PRESENT: moist, tongue midline Neck exam: ABSENT: carotid bruit, JVD, lymphadenopathy, thyromegaly Respiratory exam: PRESENT: clear to auscultation gage. ABSENT: rales, rhonchi, wheezes Cardiovascular exam: PRESENT: RRR. ABSENT: diastolic murmur, rubs, systolic murmur Pulses: PRESENT: normal dorsalis pedis pul Vascular exam: PRESENT: normal capillary refill GI/Abdominal exam: PRESENT: normal bowel sounds, soft. ABSENT: distended, guarding, mass, organolmegaly, rebound, tenderness Rectal exam: PRESENT: deferred Extremities exam: PRESENT: full ROM. ABSENT: calf tenderness, clubbing, pedal edema Neurological exam: PRESENT: altered, CN II-XII grossly intact Psychiatric exam: PRESENT: appropriate affect, normal mood. ABSENT: homicidal ideation, suicidal ideation Skin exam: PRESENT: dry, intact, warm. ABSENT: cyanosis, rash Results Laboratory Results: 06/09/18 03:35 06/09/18 03:35 06/09/18 06/09/18 06/09/18 03:35 03:35 03:35 WBC 7.5 RBC 3.86 Hgb 12.1 Hct 35.1 L MCV 91 MCH 31.3 MCHC 34.4 RDW 15.2 H Plt Count 230 Seg Neutrophils % 88.4 H Lymphocytes % 8.0 L Monocytes % 3.0 Eosinophils % 0.1 Basophils % 0.5 Absolute Neutrophils 6.6 Absolute Lymphocytes 0.6 Absolute Monocytes 0.2 Absolute Eosinophils 0.0 Absolute Basophils 0.0 Sodium 144.4 Potassium 3.8 Chloride 110 H Carbon Dioxide 21 L Anion Gap 13 BUN 6 L Creatinine 0.70 Est GFR ( Amer) > 60 Est GFR (Non-Af Amer) > 60 Glucose 117 H Calcium 8.7 Magnesium 2.1 Total Bilirubin 0.2 AST 19 ALT 12 Alkaline Phosphatase 51 Total Protein 6.3 Albumin 3.6 Serum HCG, Qual NEGATIVE Impressions: Head CT 06/09/18 03:42 IMPRESSION: No acute intracranial abnormality. Assessment & Plan - Diagnosis (1) Alcohol dependence Is this a current diagnosis for this admission?: Yes Plan: Supportive care, thiamine and folate, Ativan as needed (2) Alcohol withdrawal seizure Qualifiers: Complication of substance-induced condition: with delirium Qualified Code(s ): F10.231 - Alcohol dependence with withdrawal delirium Is this a current diagnosis for this admission?: Yes Plan: Keppra initiated, Ativan as needed - Time Time Spent: 30 to 50 Minutes - Inpatient Certification Medical Necessity: Need Close Monitoring Due to Risk of Patient Decompensation
[2018-06-09] MEDS: HEPARIN SOD (PORCINE) 5,000 UNIT/ML 1 ML SYRINGE SUBCUT SCH ×3 (06:47→21:14)
[2018-06-09] MEDS: DOCUSATE SODIUM 100 MG CAPSULE PO SCH ×2 (09:58→17:48)
[2018-06-09] MEDS: NORMAL SALINE 1000 ML 1,000 ML IV PRN ×2 (10:07→14:28)
[2018-06-09 11:39] LABS: APPEARANCE,URINE CLEAR; BILIRUBIN,URINE NEGATIVE (NEGATIVE); COLOR,URINE STRAW; GLUCOSE, URINE NEGATIVE (NEGATIVE); KETONES,URINE NEGATIVE (NEGATIVE); LEUKOCYTE ESTERASE,URINE NEGATIVE (NEGATIVE); NITRITE,URINE NEGATIVE (NEGATIVE); PROTEIN,URINE NEGATIVE (NEGATIVE); URINE SPECIFIC GRAVITY 1.015; UROBILINOGEN,URINE NEGATIVE mg/dL (<2.0)
[2018-06-09 11:57] LABS: URINE AMPHETAMINES SCREEN NEGATIVE; URINE BARBITURATES SCREEN NEGATIVE; URINE COCAINE SCREEN NEGATIVE; URINE MARIJUANA (THC) SCREEN NEGATIVE; URINE PHENCYCLIDINE SCREEN NEGATIVE
[2018-06-09] MEDS: LORAZEPAM INJ 2 MG/1 ML VIAL IV PRN ×3 (11:59→19:42)
[2018-06-09 12:23] LABS: URINE BENZODIAZEPINES SCREEN UNCONFIRMED POSITIVE
[2018-06-09 12:24] LABS: URINE METHADONE SCREEN UNCONFIRMED POSITIVE
[2018-06-09] MEDS ORDERED: HALOPERIDOL LACTATE INJ 5 MG/1 ML VIAL IV ONE (12:30)
--- NOTE | 2018-06-09 14:19 | EKG REPORT ---
SEVERITY:- BORDERLINE ECG - SINUS RHYTHM ATRIAL PREMATURE COMPLEX BORDERLINE PROLONGED QT INTERVAL : Confirmed by: Sherry Smith 09-Jun-2018 14:18:36
[2018-06-09] MEDS ORDERED: HALOPERIDOL LACTATE INJ 5 MG/1 ML VIAL IV PRN (16:51)
[2018-06-09] MEDS ORDERED: DULOXETINE HCL 30 MG CAPSULE.DR PO ONE (17:00)
[2018-06-09] MEDS: GABAPENTIN 400 MG CAPSULE PO SCH (17:48)
[2018-06-09] MEDS ORDERED: DEXTROSE 50%-WATER 25 GM/50 ML DISP.SYRIN IV PRN ×2 (18:15)
[2018-06-09] MEDS ORDERED: DEXTROSE 40% GEL 15 GM TUBE PO PRN ×2 (18:15)
[2018-06-09] MEDS ORDERED: GLUCAGON,HUMAN RECOMB 1 MG INJ SUBCUT PRN (18:15)
[2018-06-10 04:52] LABS: ABSOLUTE LYMPHOCYTES (AUTO) 0.9 10^3/uL (0.5-4.7); ABSOLUTE MONOCYTES (AUTO) 0.3 10^3/uL (0.1-1.4); ABSOLUTE NEUT (AUTO) 7.1 10^3/uL (1.7-8.2); BASOPHILS % (AUTO) 0.1 % (0-2); HEMATOCRIT 30.6 % (36.0-47.0); HEMOGLOBIN 10.6 g/dL (12.0-15.5); LYMPHOCYTES % (AUTO) 10.7 % (13-45); MEAN CORPUSCULAR HEMOGLOBIN 31.1 pg (27.0-33.4); MEAN CORPUSCULAR HGB CONC 34.7 g/dL (32.0-36.0); MEAN CORPUSCULAR VOLUME 90 fl (80-97); MONOCYTES % (AUTO) 3.8 % (3-13); PLATELET COUNT 198 10^3/uL (150-450); RED BLOOD COUNT 3.41 10^6/uL (3.72-5.28); RED CELL DISTRIBUTION WIDTH 15.3 % (11.5-14.0); SEGMENTED NEUTROPHILS % (AUTO) 85.4 % (42-78); TOTAL CELLS COUNTED % (AUTO) 100 %; WHITE BLOOD COUNT 8.4 10^3/uL (4.0-10.5)
[2018-06-10 05:41] LABS: ANION GAP 13 (5-19); BLOOD UREA NITROGEN 5 mg/dL (7-20); CALCIUM 8.9 mg/dL (8.4-10.2); CARBON DIOXIDE 18 mmol/L (22-30); CHLORIDE 112 mmol/L (98-107); GLUCOSE 97 mg/dL (75-110); POTASSIUM 3.8 mmol/L (3.6-5.0); SODIUM 142.5 mmol/L (137-145)
[2018-06-10] MEDS: DULOXETINE HCL 30 MG CAPSULE.DR PO SCH (09:03)
[2018-06-10] MEDS: HEPARIN SOD (PORCINE) 5,000 UNIT/ML 1 ML SYRINGE SUBCUT SCH ×2 (09:03→21:17)
[2018-06-10] MEDS: GABAPENTIN 400 MG CAPSULE PO SCH ×3 (09:03→17:33)
[2018-06-10] MEDS ORDERED: THIAMINE HCL 100 MG, FOLIC ACID 1 MG in NORMAL SALINE 250 ML IV SCH (10:00)
[2018-06-10] MEDS: DOCUSATE SODIUM 100 MG CAPSULE PO SCH ×2 (10:28→17:41)
--- NOTE | 2018-06-10 11:18 | PDOC PROGRESS REPORT ---
Subjective Progress Note for:: 06/10/18 Subjective:: Ms. Hurt is a 43 year old female with a past medical history of alcohol binging, alcohol withdrawal seizure, questionable history of seizure disorder ( was on Keppra before?) and depression who was admitted for possible alcohol withdrawal seizure. In the ER, patient admitted to binge drinking 48 hrs prior to presentation before developing seizures. She had witnessed seizure in the ER. No acute event overnight but patient did remain fidgetty and restless but not combative. Yesterday afternoon, she was oriented to person and place but not time. She required 6 mg of ativan overnight. Upon encounter this morning, she is oriented to person but does answer when asked about time and place. She does deny having any headache, chest pain, neck pain, SOB, chills or fever. No nausea or vomiting. She had 2 large BM overnight with soft, non-watery stools. Reason For Visit: ETOH WITHDRAWAL SZ Physical Exam Vital Signs: Temp Pulse Resp BP Pulse Ox 98.7 F 104 H 14 140/81 H 95 06/10/18 07:34 06/10/18 09:00 06/10/18 09:00 06/10/18 07:34 06/10/18 09:00 Intake & Output 06/09/18 06/10/18 06/11/18 06:59 06:59 06:59 Intake Total 251.2 3000 Balance 251.2 3000 Weight 162 lb 7.691 oz General appearance: PRESENT: no acute distress, well-developed, well-nourished Head exam: PRESENT: atraumatic, normocephalic Eye exam: PRESENT: conjunctiva pink, EOMI, PERRLA. ABSENT: scleral icterus Ear exam: PRESENT: normal external ear exam Mouth exam: PRESENT: moist, tongue midline Neck exam: ABSENT: carotid bruit, JVD, lymphadenopathy, thyromegaly Respiratory exam: PRESENT: clear to auscultation gage. ABSENT: rales, rhonchi, wheezes Cardiovascular exam: PRESENT: RRR. ABSENT: diastolic murmur, rubs, systolic murmur Pulses: PRESENT: normal dorsalis pedis pul GI/Abdominal exam: PRESENT: normal bowel sounds, soft. ABSENT: distended, guarding, mass, organolmegaly, rebound, tenderness Rectal exam: PRESENT: deferred Neurological exam: PRESENT: alert, altered, awake, oriented to person Results Laboratory Results: 06/10/18 04:16 06/10/18 04:16 06/09/18 06/10/18 06/10/18 08:50 04:16 04:16 WBC 8.4 RBC 3.41 L Hgb 10.6 L Hct 30.6 L MCV 90 MCH 31.1 MCHC 34.7 RDW 15.3 H Plt Count 198 Seg Neutrophils % 85.4 H Lymphocytes % 10.7 L Monocytes % 3.8 Eosinophils % 0.0 Basophils % 0.1 Absolute Neutrophils 7.1 Absolute Lymphocytes 0.9 Absolute Monocytes 0.3 Absolute Eosinophils 0.0 Absolute Basophils 0.0 Sodium 142.5 Potassium 3.8 Chloride 112 H Carbon Dioxide 18 L Anion Gap 13 BUN 5 L Creatinine 0.51 L Est GFR ( Amer) > 60 Est GFR (Non-Af Amer) > 60 Glucose 97 Calcium 8.9 Urine Color STRAW Urine Appearance CLEAR Urine pH 7.0 Ur Specific Latty 1.015 Urine Protein NEGATIVE Urine Glucose (UA) NEGATIVE Urine Ketones NEGATIVE Urine Blood NEGATIVE Urine Nitrite NEGATIVE Ur Leukocyte Esterase NEGATIVE Urine WBC (Auto) 1 Impressions: Head CT 06/09/18 03:42 IMPRESSION: No acute intracranial abnormality. Assessment & Plan - Diagnosis (1) Alcohol withdrawal seizure Qualifiers: Complication of substance-induced condition: with delirium Is this a current diagnosis for this admission?: Yes Plan: No recurrence of seizure since admission to the floor. On Keppra. Continue ativan prn. CT head was negative. UDS was positive for methadone. Patient's boyfriend does say she goes regularly to a methadone clinic for treatment of her history of opioid dependence. (2) Alcohol withdrawal Is this a current diagnosis for this admission?: Yes Plan: Ativan as needed. Continue banana bag. - Time Time Spent with patient: 15-24 minutes
[2018-06-10] MEDS ORDERED: METHADONE HCL 10 MG TABLET PO ONE (16:30)
[2018-06-10] MEDS: NORMAL SALINE 1000 ML 1,000 ML with POTASSIUM CHLORIDE 20 MEQ, MAGNESIUM SULFATE 8 MEQ,... IV SCH ×5 (17:34)
[2018-06-11 06:25] LABS: ABSOLUTE LYMPHOCYTES (AUTO) 1.3 10^3/uL (0.5-4.7); ABSOLUTE MONOCYTES (AUTO) 0.3 10^3/uL (0.1-1.4); ABSOLUTE NEUT (AUTO) 5.3 10^3/uL (1.7-8.2); BASOPHILS % (AUTO) 0.4 % (0-2); EOSINOPHILS % (AUTO) 0.5 % (0-6); HEMATOCRIT 35.3 % (36.0-47.0); LYMPHOCYTES % (AUTO) 19.2 % (13-45); MEAN CORPUSCULAR HEMOGLOBIN 30.9 pg (27.0-33.4); MEAN CORPUSCULAR VOLUME 91 fl (80-97); MONOCYTES % (AUTO) 4.4 % (3-13); PLATELET COUNT 197 10^3/uL (150-450); RED BLOOD COUNT 3.88 10^6/uL (3.72-5.28); RED CELL DISTRIBUTION WIDTH 15.3 % (11.5-14.0); SEGMENTED NEUTROPHILS % (AUTO) 75.5 % (42-78); TOTAL CELLS COUNTED % (AUTO) 100 %
[2018-06-11 06:46] LABS: ANION GAP 11 (5-19); BLOOD UREA NITROGEN 10 mg/dL (7-20); CALCIUM 8.6 mg/dL (8.4-10.2); CARBON DIOXIDE 21 mmol/L (22-30); CHLORIDE 109 mmol/L (98-107); GLUCOSE 81 mg/dL (75-110); POTASSIUM 3.9 mmol/L (3.6-5.0); SODIUM 140.8 mmol/L (137-145)
[2018-06-11] MEDS: GABAPENTIN 400 MG CAPSULE PO SCH ×3 (09:10→18:54)
[2018-06-11] MEDS: DULOXETINE HCL 30 MG CAPSULE.DR PO SCH (09:11)
[2018-06-11] MEDS: HEPARIN SOD (PORCINE) 5,000 UNIT/ML 1 ML SYRINGE SUBCUT SCH ×2 (09:11→21:52)
--- NOTE | 2018-06-11 09:14 | Progress Note ---
Provider Note Provider Note: Patient apparently is Dr. Terry's patient. Will transfer service back to PCP.
[2018-06-11] MEDS: DOCUSATE SODIUM 100 MG CAPSULE PO SCH ×2 (11:05→18:58)
--- NOTE | 2018-06-11 18:13 | PDOC PROGRESS REPORT ---
Subjective Progress Note for:: 06/11/18 Subjective:: Patient is known to my practice and transferred to my hospital service earlier today. I had extensive discussion with her and mother in law at bedside during my evaluation. Both denied any significant alcohol ingestion before onset of seizure activities at about 2:30 am on Monday,06/09/18. Patient had 3 generalized seizure activities prior to EMS personnel arrival, one episode during EMS personnel evaluation and another episode while in the ED. She continue to demonstrate memory impairment with pre seizure onset period activities. She recently started attending Methadone clinic with escalation of her dosing by 5 mg every 2 days to preseizure dose of 65mg p.o daily. Patient has been on Duloxitine and Gapentin therapy for chronic pain management for awhile. No recurrent seizure since admission. Reason For Visit: ETOH WITHDRAWAL SZ Physical Exam Vital Signs: Temp Pulse Resp BP Pulse Ox 98.6 F 80 16 119/68 100 06/11/18 15:33 06/11/18 15:33 06/11/18 15:33 06/11/18 15:33 06/11/18 15:33 Intake & Output 06/10/18 06/11/18 06/12/18 06:59 06:59 06:59 Intake Total 3000 397 1422 Balance 3000 397 1422 Weight 73.7 kg 73.8 kg General appearance: PRESENT: no acute distress, well-developed, well-nourished Head exam: PRESENT: atraumatic, normocephalic Eye exam: PRESENT: conjunctiva pink, EOMI, PERRLA. ABSENT: scleral icterus Ear exam: PRESENT: normal external ear exam Mouth exam: PRESENT: moist, tongue midline - with healing bite injury on left lateral margin of the tongue Respiratory exam: PRESENT: clear to auscultation gage Cardiovascular exam: PRESENT: RRR. ABSENT: diastolic murmur, rubs, systolic murmur Vascular exam: PRESENT: normal capillary refill. ABSENT: pallor GI/Abdominal exam: PRESENT: normal bowel sounds, soft. ABSENT: distended, guarding, mass, organolmegaly, rebound, tenderness Extremities exam: ABSENT: pedal edema Musculoskeletal exam: PRESENT: ambulatory Neurological exam: PRESENT: alert, awake, oriented to person, oriented to time. ABSENT: oriented to place - not specific with names Psychiatric exam: PRESENT: appropriate affect, normal mood. ABSENT: homicidal ideation, suicidal ideation Skin exam: PRESENT: dry, intact, warm. ABSENT: cyanosis, rash Results Laboratory Results: 06/11/18 05:30 06/11/18 05:30 06/11/18 06/11/18 05:30 05:30 WBC 7.0 RBC 3.88 Hgb 12.0 Hct 35.3 L MCV 91 MCH 30.9 MCHC 34.0 RDW 15.3 H Plt Count 197 Seg Neutrophils % 75.5 Lymphocytes % 19.2 Monocytes % 4.4 Eosinophils % 0.5 Basophils % 0.4 Absolute Neutrophils 5.3 Absolute Lymphocytes 1.3 Absolute Monocytes 0.3 Absolute Eosinophils 0.0 Absolute Basophils 0.0 Sodium 140.8 Potassium 3.9 Chloride 109 H Carbon Dioxide 21 L Anion Gap 11 BUN 10 Creatinine 0.65 Est GFR ( Amer) > 60 Est GFR (Non-Af Amer) > 60 Glucose 81 Calcium 8.6 Impressions: Head CT 06/09/18 03:42 IMPRESSION: No acute intracranial abnormality. Assessment & Plan - Diagnosis (1) Generalized convulsive seizure Is this a current diagnosis for this admission?: Yes Plan: Patient remain seizure free on current medication management. Her seizure could be due to decrease seizure threshold with drug-drug interactions including Gabapentin, Duloxetine and Methadone. Continue current management with care plan to coordinate with Methadone Clinic about her seizure activity and possible discontinuation of some of her medication. (2) HTN (hypertension) Qualifiers: Hypertension type: essential hypertension Qualified Code(s): I10 - Essential (primary) hypertension Is this a current diagnosis for this admission?: Yes Plan: Continue current management and monitor blood pressure closely. (3) Cervical spondylosis with radiculopathy Is this a current diagnosis for this admission?: Yes Plan: Maintain on Gabapentin for seizure and neuropathic pain management. (4) Persistent insomnia Is this a current diagnosis for this admission?: Yes Plan: Maintain on current medication management. (5) Acne vulgaris Is this a current diagnosis for this admission?: Yes Plan: Maintain on current medication management. - Time Time Spent with patient: 25-34 minutes Medications reviewed and adjusted accordingly: Yes Anticipated discharge: Home Within: Other - Inpatient Certification Based on my medical assessment, after consideration of the patient's comorbidities, presenting symptoms, or acuity I expect that the services needed warrant INPATIENT care.: Yes I certify that my determination is in accordance with my understanding of Medicare's requirements for reasonable and necessary INPATIENT services [42 CFR 412.3e].: Yes Medical Necessity: Need Close Monitoring Due to Risk of Patient Decompensation, Need For IV Fluids, Need For Continuous Telemetry Monitoring, Risk of Complication if Not Cared For in Hospital Post Hospital Care: D/C Extrusion Process Operator Documentation - Plan Summary Plan Summary: Continue current medication management. Start on Zbec vitamin 1 tablet po daily. I had extensive discussion with patient and [id number] a bedside.
[2018-06-11] MEDS: NORMAL SALINE 1000 ML 1,000 ML with POTASSIUM CHLORIDE 20 MEQ, MAGNESIUM SULFATE 8 MEQ,... IV SCH ×5 (18:59)
[2018-06-11] MEDS: LORAZEPAM INJ 2 MG/1 ML VIAL IV PRN (21:53)
[2018-06-12] MEDS: LORAZEPAM INJ 2 MG/1 ML VIAL IV PRN ×4 (04:34→12:32)
[2018-06-12 06:12] LABS: ABSOLUTE BASOPHILS # (AUTO) 0.1 10^3/uL (0.0-0.2); ABSOLUTE EOSINOPHILS # (AUTO) 0.1 10^3/uL (0.0-0.6); ABSOLUTE LYMPHOCYTES (AUTO) 1.8 10^3/uL (0.5-4.7); ABSOLUTE MONOCYTES (AUTO) 0.5 10^3/uL (0.1-1.4); BASOPHILS % (AUTO) 0.9 % (0-2); EOSINOPHILS % (AUTO) 1.6 % (0-6); HEMATOCRIT 35.8 % (36.0-47.0); HEMOGLOBIN 12.3 g/dL (12.0-15.5); LYMPHOCYTES % (AUTO) 27.9 % (13-45); MEAN CORPUSCULAR HEMOGLOBIN 31.1 pg (27.0-33.4); MEAN CORPUSCULAR HGB CONC 34.3 g/dL (32.0-36.0); MEAN CORPUSCULAR VOLUME 91 fl (80-97); MONOCYTES % (AUTO) 7.3 % (3-13); PLATELET COUNT 232 10^3/uL (150-450); RED BLOOD COUNT 3.95 10^6/uL (3.72-5.28); RED CELL DISTRIBUTION WIDTH 14.8 % (11.5-14.0); SEGMENTED NEUTROPHILS % (AUTO) 62.3 % (42-78); TOTAL CELLS COUNTED % (AUTO) 100 %; WHITE BLOOD COUNT 6.5 10^3/uL (4.0-10.5)
[2018-06-12 06:25] LABS: ANION GAP 13 (5-19); BLOOD UREA NITROGEN 10 mg/dL (7-20); CALCIUM 9.2 mg/dL (8.4-10.2); CARBON DIOXIDE 20 mmol/L (22-30); CHLORIDE 110 mmol/L (98-107); GLUCOSE 93 mg/dL (75-110); POTASSIUM 3.5 mmol/L (3.6-5.0); SODIUM 142.7 mmol/L (137-145)
[2018-06-12] MEDS: DOCUSATE SODIUM 100 MG CAPSULE PO SCH (09:02)
[2018-06-12] MEDS: GABAPENTIN 400 MG CAPSULE PO SCH ×2 (09:05→13:41)
[2018-06-12] MEDS: DULOXETINE HCL 30 MG CAPSULE.DR PO SCH (09:06)
[2018-06-12] MEDS: HEPARIN SOD (PORCINE) 5,000 UNIT/ML 1 ML SYRINGE SUBCUT SCH (09:07)
[2018-06-12] MEDS: NICOTINE 21 MG/24 HR PATCH.TD24 TD SCH ×2 (09:12→10:01)
[2018-06-12] MEDS ORDERED: MULTIVIT-STRESS FORMULA/ZINC TABLET PO SCH (10:00)
[2018-06-12 15:07] VITALS: BP 124/71
--- NOTE | 2018-06-12 18:30 | PDOC DISCHARGE SUMMARY ---
General - Admit/Disc Date/PCP Admission Date/Primary Care Provider: 06/09/18 05:30 SAURABH STACY Discharge Date: 06/12/18 - Discharge Diagnosis (1) Generalized convulsive seizure Is this a current diagnosis for this admission?: Yes (2) HTN (hypertension) Is this a current diagnosis for this admission?: Yes (3) Cervical spondylosis with radiculopathy Is this a current diagnosis for this admission?: Yes (4) Persistent insomnia Is this a current diagnosis for this admission?: Yes (5) Acne vulgaris Is this a current diagnosis for this admission?: Yes - Additional Information Resuscitation Status: Full Code Home Medications: Duloxetine HCl [Cymbalta] 60 mg PO DAILY 06/09/18 Gabapentin [Neurontin] 800 mg PO TID 06/09/18 Losartan Potassium [Cozaar 50 mg Tablet] 50 mg PO DAILY 06/11/18 Mirtazapine [Remeron] 30 mg PO DAILY 06/11/18 History of Present Illness Patient complains of: seizure activity History of Present Illness: BAYLEE SHARMA is a 43 year old female with a past medical history of alcohol binging, alcohol withdrawal seizure and depression. History is obtained by the record as she is sedated. Patient presents after 3 seizures following abrupt alcohol cessation, last drink 48 hours ago. EMS witnessed a seizure for which she received Versed, she was combative in postictal state prompting Haldol and Benadryl. She denies fever, headache, recent illness. She admits to remote discontinuation of Keppra. In the emergency room she has another witnessed seizure with urinary incontinence and tongue biting, prompting 2 mg of Ativan and subsequently aborted within 1 minute. Hospital Course Hospital Course: Patient was managed with seizure protocol include us of IV Lorazepam and restarted on Gabapentin and Duloxetine. Her Methadone was held during this hospitalization. She continue to demonstrated post ictal memory impairment and disorientation. I had extensive discussion with her and her fiance mother at bedside denying alcohol abuse. Patient have been attending Methadone Clinic with recent escalation of her Methadone dosage to 65 mg prior to her seizure recurrent event. Her seizure activity most likely consequence of decrease seizure threshold from deepa-drug interaction of Gabapentin, Duloxetine and Methadone usage. Patient was instructed to inform her Methadone management team about this possibility and consider alternative treatment. She signed out against medical advise earlier today. In view of her action, she will be given 30 days notice of discharge from my practice from 06/13/2018. I will continue to provide medical care as her PCP until expiration of this time. She will be encourage to seek another PCP during this transition period. Physical Exam Vital Signs: Temp Pulse Resp BP Pulse Ox 98.4 F 108 H 12 124/71 100 06/12/18 15:06 06/12/18 15:06 06/12/18 15:06 06/12/18 15:06 06/12/18 15:06 Intake & Output 06/11/18 06/12/18 06/13/18 06:59 06:59 06:59 Intake Total 397 1659 591 Output Total 0 Balance 397 1659 591 Weight 73.8 kg 73.8 kg Results Laboratory Results: 06/12/18 05:17 06/12/18 05:17 06/12/18 06/12/18 05:17 05:17 WBC 6.5 RBC 3.95 Hgb 12.3 Hct 35.8 L MCV 91 MCH 31.1 MCHC 34.3 RDW 14.8 H Plt Count 232 Seg Neutrophils % 62.3 Lymphocytes % 27.9 Monocytes % 7.3 Eosinophils % 1.6 Basophils % 0.9 Absolute Neutrophils 4.0 Absolute Lymphocytes 1.8 Absolute Monocytes 0.5 Absolute Eosinophils 0.1 Absolute Basophils 0.1 Sodium 142.7 Potassium 3.5 L Chloride 110 H Carbon Dioxide 20 L Anion Gap 13 BUN 10 Creatinine 0.66 Est GFR ( Amer) > 60 Est GFR (Non-Af Amer) > 60 Glucose 93 Calcium 9.2 Impressions: Head CT 06/09/18 03:42 IMPRESSION: No acute intracranial abnormality. Qualifiers - * PATIENT BEING DISCHARGED WITH ANY OF THE FOLLOWING DIAGNOSIS: No Plan Discharge Plan: D/C home against medical advised. Patient will be issued 30 days notice of discharge from my practice from 06/13/2018.
== END 2018-06-12 15:00 | disposition left against medical advice (07) | DRG 894 ==
LOC: ER 03:31 → EH 05:30 → 3S 09:40
PROVIDERS: ADMIT Internal Medicine Geriatric Medicine; ATTEND Internal Medicine Geriatric Medicine
PROC: 3E0F73Z Introduction of Anti-inflammatory into Respiratory Tract, Via Natural or Artificial Opening (ICD-10-PCS; principal; 2018-06-09)
DX: F10.231 Alcohol dependence with withdrawal delirium (principal); Y90.0 Blood alcohol level of less than 20 mg/100 ml
CPT/HCPCS: 36415; 70450; 80048; 80053; 80307; 81001; 82962; 83735; 84703; 85025; 93005; 93010; 96365; 96375; 99285; J1630; J1644; J1953; J2060; J3411; J3475; J3480; J3490; J7030; J7050; J7120